=== PATIENT | male | born 1990 | race Caucasian/White ===

== ENCOUNTER → 2024-11-02 12:59 | Outpatient (REF) | payer OTHER, SELFPAY | LOC: RCS 12:59 | PROVIDERS: ATTENDING PHYSICIAN Internal Medicine; FAMILY PHYSICIAN Physician Assistant Medical | DX: Z01.810 Encounter for preprocedural cardiovascular examination (principal); R94.31 Abnormal electrocardiogram [ECG] [EKG]; I51.7 Cardiomegaly | CPT/HCPCS: 93306 ==